=== PATIENT | male | born 1990 | race Caucasian/White ===

== ENCOUNTER → 2017-02-15 | Outpatient (REF) | payer OTHER ==
[2017-02-15 13:47] LABS: CONTROL LINE HPYORI INT CTR LINE PRESENT
== END ==
LOC: M LAB REF 12:35
PROVIDERS: ATTEND Nurse Practitioner Family
DX: R10.13 Epigastric pain (principal)

== ENCOUNTER → 2017-02-16 | Outpatient (CLI) | payer OTHER ==
--- NOTE | 2017-02-16 09:28 | REP ---
Clinical: Epigastric abdominal pain. Technique: [place] scale ultrasound using curved array transducer. Findings: The liver and pancreas are normal in contour, size, and echogenicity without focal hepatic or pancreatic lesions identified. The gallbladder is normal without gallstones, wall thickening or pericholecystic fluid. No biliary ductal dilatation is appreciated, and the common bile duct measures 3.5 mm diameter. The right kidney is normal in reniform shape without hydronephrosis and measures 12.0 x 5.2 x 4.5 cm. No ascites. Visualized portions of the abdominal aorta normal. Impression: Normal right upper quadrant and gallbladder abdominal ultrasound. Signed by Jose Burgos MD 02/16/2017 09:19 A
== END ==
LOC: M RAD 08:41
PROVIDERS: ATTEND Internal Medicine Gastroenterology
DX: R10.13 Epigastric pain (principal)

== ENCOUNTER 2017-07-10 04:52 | Emergency (ER) | payer OTHER ==
[2017-07-10] MEDS: CLINDAMYCIN 150 MG CAP PO (06:23)
[2017-07-10] MEDS: ONDANSETRON 4 MG ORAL DISINTEGRATING TAB (S0181) PO (06:24)
[2017-07-10] MEDS: PERCOCET 5MG/325MG TAB PO (06:25)
== END 2017-07-10 06:30 | disposition home or self-care (01) ==
LOC: M ED 04:52
DX: S02.5XXA Fracture of tooth (traumatic), initial encounter for closed fracture (principal); X58.XXXA Exposure to other specified factors, initial encounter; Y92.89 Other specified places as the place of occurrence of the external cause; K04.7 Periapical abscess without sinus; Z88.0 Allergy status to penicillin
CPT/HCPCS: 99282